=== PATIENT | female | born 1970 | race African-American/Black ===

== ENCOUNTER 2018-04-05 10:51 | Emergency (ER) | payer MEDICAID, OTHER ==
[~2018-04-05] VITALS: Ht 167.6 cm; Wt 73.0 kg
[2018-04-05 12:46] VITALS: BP 117/78
== END 2018-04-05 13:24 | disposition left against medical advice (07) ==
LOC: ER 10:51
DX: E86.0 Dehydration (principal)
CPT/HCPCS: 93005; 99283

== ENCOUNTER 2018-05-17 04:06 | Emergency (ER) | payer OTHER ==
[~2018-05-17] VITALS: Ht 165.1 cm; Wt 72.0 kg
[2018-05-17] MEDS ORDERED: KETOROLAC 30MG/ML VIAL IM ONE (06:45)
[2018-05-17 06:50] VITALS: BP 118/77
== END 2018-05-17 07:25 | disposition home or self-care (01) ==
LOC: ER 04:06
DX: M54.42 Lumbago with sciatica, left side (principal); S00.81XA Abrasion of other part of head, initial encounter; W01.198A Fall on same level from slipping, tripping and stumbling with subsequent striking against other object, initial encounter; Y93.01 Activity, walking, marching and hiking; Y92.091 Bathroom in other non-institutional residence as the place of occurrence of the external cause; F14.10 Cocaine abuse, uncomplicated; F17.210 Nicotine dependence, cigarettes, uncomplicated; F12.90 Cannabis use, unspecified, uncomplicated
CPT/HCPCS: 96372; 99283; J1885

== ENCOUNTER 2018-07-23 13:01 | Emergency (ER) | payer OTHER ==
[~2018-07-23] VITALS: Ht 157.5 cm; Wt 82.0 kg
[2018-07-23 13:07] VITALS: BP 146/100
== END 2018-07-23 18:58 | disposition left against medical advice (07) ==
LOC: ER 13:01
DX: M79.671 Pain in right foot (principal); Z53.21 Procedure and treatment not carried out due to patient leaving prior to being seen by health care provider